=== PATIENT | female | born 1960 | race Caucasian/White ===

== ENCOUNTER 2017-05-09 02:21 | Emergency (ER) | payer BC ==
[2017-05-09] MEDS ORDERED: methylPREDNISolone SUCCINATE 125 MG/2 ML VIAL IVP STA (02:45)
[2017-05-09] MEDS ORDERED: FAMOTIDINE 20 MG/2 ML VIAL IVP STA (02:45)
[2017-05-09] MEDS ORDERED: ASPIRIN CHEW 81 MG TABLET PO STA (02:45)
[2017-05-09] MEDS ORDERED: ASPIRIN CHEW 81 MG TABLET ONE (02:53)
[2017-05-09] MEDS ORDERED: FAMOTIDINE 20 MG/2 ML VIAL ONE (02:53)
[2017-05-09] MEDS ORDERED: methylPREDNISolone SUCCINATE 125 MG/2 ML VIAL ONE (02:53)
[2017-05-09 03:04] LABS: BASOPHILS # (AUTO) 0.1 10^3/uL (0.0-0.1); BASOPHILS % (AUTO) 1.5 %; EOSINOPHILS # (AUTO) 0.1 10^3/uL (0.0-0.7); EOSINOPHILS % (AUTO) 1.2 %; HCT - HEMATOCRIT 35.2 % (37.0-47.0); HGB - HEMOGLOBIN 12.3 g/dL (12.0-16.0); LYMPHOCYTES # (AUTO) 1.8 10^3/uL (1.5-3.5); LYMPHOCYTES % (AUTO) 22.2 %; MEAN CORPUSCULAR HEMOGLOBIN 30.4 pg (27.0-31.0); MEAN PLATELET VOLUME 8.2 fL (7.9-10.8); MONOCYTES # (AUTO) 0.6 10^3/uL (0.0-1.0); MONOCYTES % (AUTO) 7.8 %; NEUTROPHILS # (AUTO) 5.6 10^3/uL (1.5-6.6); NEUTROPHILS % (AUTO) 67.3 %; RED BLOOD COUNT 4.05 10^6/uL (4.20-5.40); RED CELL DISTRIBUTION WIDTH 13.8 % (12.0-15.0); UNCORRECTED WHITE BLOOD COUNT 8.3 x10^3/uL; WHITE BLOOD COUNT 8.3 x10^3/uL (4.8-10.8)
[2017-05-09 03:10] LABS: INR 0.9 (0.8-1.2); PT - PROTHROMBIN TIME 10.6 secs (9.9-12.6)
[2017-05-09 03:11] LABS: ALBUMIN/GLOBULIN RATIO 1.1 (1.0-2.2); BILIRUBIN,TOTAL 0.5 mg/dL (0.2-1.0); CALCIUM 9.7 mg/dL (8.5-10.3); CREATININE 1.2 mg/dL (0.4-1.0); POTASSIUM 3.8 mmol/L (3.5-5.0); TOTAL PROTEIN 7.9 g/dL (6.7-8.2)
[2017-05-09 03:17] LABS: PARTIAL THROMBOPLASTIN TIME 35.6 secs (24.9-33.3)
--- NOTE | 2017-05-09 03:18 | XRAY Preliminary Report ---
Exam: XR Chest 1 View IMPRESSION: No acute process seen in the chest. [facility] SITE ID: [id number]
--- NOTE | 2017-05-09 03:21 | XRAY Report ---
EXAM: CHEST RADIOGRAPHY EXAM DATE: 05/09/2017 03:04 AM. CLINICAL HISTORY: Chest pain. COMPARISON: 04/13/2014 CT, 04/14/2014 x-ray. TECHNIQUE: 1 view. FINDINGS: Lungs/Pleura: No focal opacities evident. No pleural effusion. No pneumothorax. Mediastinum: Within exam limitations, cardiomediastinal contour is normal. Other: Dual-lead left chest pacer present. IMPRESSION: No acute process seen in the chest. [facility] Referring Provider Line: [phone] SITE ID: [id number]
[2017-05-09] MEDS ORDERED: SODIUM CHLORIDE 0.9% 1,000 ML IV ONE (03:39)
[2017-05-09] MEDS ORDERED: NITROGLYCERIN SL 0.4 MG TABLET SL STA (03:39)
[2017-05-09] MEDS ORDERED: NITROGLYCERIN SL 0.4 MG TABLET SL ONE (03:54)
--- NOTE | 2017-05-09 06:11 | ED Physician Documentation ---
PD HPI CHEST PAIN - Stated complaint Stated Complaint: CHEST PAIN - Chief complaint Chief Complaint: Cardiac - History obtained from History obtained from: Patient, Family - History of Present Illness Timing - onset: How many hours ago (1) Timing - onset during: Sleep Timing - details: Abrupt onset, Still present Quality: Pressure, Aching, Sharp Location: Substernal, Left chest Radiation: Jaw Improved by: Oxygen, Nitro Associated symptoms: Feeling faint / dizzy. No: Shortness of air, Diaphoresis, Nausea, Vomiting Similar symptoms before: Work up / diagnostics, Treatment, Follow up Recently seen: Not recently seen - Additional information Additional information: Patient is a 57 year old female with multiple co-morbidities who is presenting to the emergency department for chest pain. Patient states that earlier in the day she was stung by a wasp behind her left leg. Patient states that it wasn't bothersome at first but the swelling continued throughout the day. patient states that while she was sleeping she was woken up by chest pain. patient states that she has a history of prinzmental angina and this felt like her other episodes. Patient took her home nitro with good relief. Patient had a normal stress test this year, and recently had a pacemaker placed. Review of Systems Constitutional: denies: Fever, Chills Eyes: denies: Decreased vision Ears: denies: Ear pain, Drainage/discharge Nose: denies: Congestion Throat: denies: Oral lesions / sores, Sore throat Cardiac: reports: Chest pain / pressure. denies: Palpitations, Calf pain Respiratory: denies: Dyspnea, Cough, Wheezing GI: denies: Nausea, Vomiting : denies: Dysuria, Frequency, Hesitancy Skin: reports: Rash, Lesions Musculoskeletal: reports: Neck pain, Back pain Neurologic: denies: Generalized weakness, Focal weakness, Numbness Immunocompromised: denies: Immunocompromised PD PAST MEDICAL HISTORY - Past Medical History Past Medical History: Yes Cardiovascular: Hypertension, High cholesterol, Angina, Atrial fibrillation Respiratory: COPD, Pneumonia, Shortness of breath, Sleep apnea, CPAP use Neuro: CVA, Headache/migraine, Seizure disorder, Motion sickness Endocrine/Autoimmune: Type 2 diabetes, HyPOthyroidism, Other GI: GERD SPORTS PHYSIOTHERAPIST: None : Incontinence, Nocturia, Frequency, Kidney stones HEENT: Chronic sinusitis Psych: Anxiety, Claustrophobia Musculoskeletal: Osteoarthritis Derm: None - Past Surgical History Past Surgical History: Yes General: Cholecystectomy Ortho: Spine surgery /SPORTS PHYSIOTHERAPIST: section, Hysterectomy, Oophrectomy Neuro: Craniotomy - Present Medications Home Medications: Ambulatory Orders Medication Instructions Recorded Confirmed Albuterol [Ventolin Hfa] 2 puffs INH Q4H PRN 01/06/13 05/09/17 Amlodipine Besylate 10 mg PO DAILY 01/06/13 05/09/17 Antihemophilic Factor, Hum Rec 3,000 units IV DAILY PRN 01/06/13 05/09/17 [Recombinate] Aspirin [Aspir 81] 81 mg PO DAILY 01/06/13 05/09/17 Atorvastatin Calcium 80 mg PO HS 01/06/13 05/09/17 Doxazosin [Cardura] 2 mg PO QPM 01/06/13 05/09/17 Fludrocortisone [Florinef] 0.1 mg PO DAILY 01/06/13 05/09/17 Hydrocortisone [Cortef] 20 mg PO DAILY 01/06/13 05/09/17 Insulin Glargine,Hum.rec.anlog 30 units SQ DAILY 01/06/13 05/09/17 [Lantus] Insulin Lispro [Humalog] 6 - 18 units SQ ACHS 01/06/13 04/16/15 Multivitamin [Multi-Vitamin Daily] 1 tab PO DAILY 01/06/13 05/09/17 Neutra-Phos [K-Phos Neutral] 6 - 9 tab PO DAILY 01/06/13 05/09/17 Nitroglycerin [Nitrostat] 0.4 mg SL DAILY 01/06/13 05/09/17 Omeprazole 40 mg PO BID 01/06/13 05/09/17 Pramipexole Di-HCl [Mirapex] 2 mg PO HS 01/06/13 05/09/17 Ranolazine [Ranexa] 1 tab PO BID 01/06/13 05/09/17 Somatropin [Norditropin Flexpro] 0.8 mg SUBQ DAILY 01/06/13 05/09/17 Levothyroxine Sodium [Synthroid] 150 mcg PO DAILY 07/15/13 05/09/17 oxyCODONE [Roxicodone] 5 mg PO Q4-6H PRN #20 tablet 04/13/14 04/16/15 Calcitriol 1 cap PO MOWEFR@0900 08/19/1405/09/17 Ergocalciferol (Vitamin D2) 50,000 cap PO SUTH@0900 08/19/14 05/09/17 [Vitamin D2] Estradiol [Estrace] 0.5 gm TOP Q48H 08/19/14 05/09/17 Isosorbide Mononitrate [Imdur] 60 mg PO DAILY 08/19/14 05/09/17 Domperidone 30 mg pe PO QID 04/17/15 05/09/17 - Allergies Allergies/Adverse Reactions: Allergies Allergy/AdvReac Type Severity Reaction Status Date / Time promethazine HCl * Allergy Severe becomes Verified 05/09/17 02:28 [From Phenergan] unresponsive Sulfa (Sulfonamide Allergy Unknown unknown Verified 05/09/17 02:28 Antibiotics) morphine Allergy Unknown Verified 05/09/17 02:28 Penicillins Allergy unknown Verified 05/09/17 02:28 - Social History Does the pt smoke?: No Smoking Status: Never smoker Does the pt drink ETOH?: No Does the pt have substance abuse?: No - Immunizations Immunizations are current?: Yes - POLST Patient has POLST: Yes POLST Status: Full Code PD ED PE NORMAL - Vitals Vital signs reviewed: Yes - General General: Alert and oriented X 3, No acute distress, Well developed/nourished - HEENT HEENT: Atraumatic, PERRL, Moist mucous membranes - Neck Neck: Supple, no meningeal sign, No JVD - Cardiac Cardiac: RRR, No murmur - Respiratory Respiratory: No respiratory distress, Clear bilaterally - Abdomen Abdomen: Soft, Non tender, Non distended - Derm Derm: Warm and dry - Neuro Neuro: Alert and oriented X 3, No motor deficit, No sensory deficit, Normal speech - Psych Psych: Normal mood, Normal affect PD ED PE EXPANDED - General General: Alert, No acute distress, Anxious - Derm Derm: Rash, Urticaria (rash consistent with allergic reaction to posterior left leg) - Extremities Extremities: Left knee (posterior left knee pain and swelling) Results - Vitals Vitals: Vital Signs - 24 hr 05/09/17 05/09/17 05/09/17 02:25 03:54 04:00 Temperature 36.9 C Heart Rate 81 75 75 Respiratory 20 16 16 Rate Blood Pressure 160/82 H 140/72 H 133/73 H O2 Saturation 98 97 95 05/09/17 05/09/17 04:08 06:17 Temperature Heart Rate 74 80 Respiratory 16 16 Rate Blood Pressure 133/71 H 135/71 H O2 Saturation 95 95 Oxygen O2 Source [] Room air O2 Source Room air - EKG (time done) 0225 Rate: Rate (enter#) (81) Rhythm: NSR Rousseau: Normal Intervals: Normal DC QRS: Normal Ischemia: Normal ST segments Compare to prior EKG: Unchanged from prior EKG 0524 Rate: Rate (enter#) (81) Rhythm: NSR Compare to prior EKG: Unchanged from prior EKG - Labs Labs: Laboratory Tests 05/09/17 05/09/17 05/09/17 02:30 02:30 02:30 WBC 8.3 RBC 4.05 L Hgb 12.3 Hct 35.2 L MCV 87.0 MCH 30.4 MCHC 35.0 RDW 13.8 Plt Count 233 MPV 8.2 Neut # 5.6 Lymph # 1.8 [place] # 0.6 Eos # 0.1 Baso # 0.1 Absolute Nucleated RBC 0.00 Nucleated RBCs 0.0 PT 10.6 INR 0.9 APTT 35.6 H Sodium 139 Potassium 3.8 Chloride 104 Carbon Dioxide 27 Anion Gap 8.0 BUN 22 H Creatinine 1.2 H Estimated GFR (MDRD) 46 L Glucose 151 H Calcium 9.7 Total Bilirubin 0.5 AST 22 ALT 24 Alkaline Phosphatase 93 Troponin I B-Natriuretic Peptide Total Protein 7.9 Albumin 4.1 Globulin 3.8 Albumin/Globulin Ratio 1.1 Lipase 21 L 05/09/17 05/09/17 05/09/17 02:30 02:30 05:54 WBC RBC Hgb Hct MCV MCH MCHC RDW Plt Count MPV Neut # Lymph # [place] # Eos # Baso # Absolute Nucleated RBC Nucleated RBCs PT INR APTT Sodium Potassium Chloride Carbon Dioxide Anion Gap BUN Creatinine Estimated GFR (MDRD) Glucose Calcium Total Bilirubin AST ALT Alkaline Phosphatase Troponin I < 0.04 < 0.04 B-Natriuretic Peptide 25 Total Protein Albumin Globulin Albumin/Globulin Ratio Lipase - Rads (name of study) chest x-ray Radiology: Final report received (no acute disease process) PD MEDICAL DECISION MAKING - ED course Complexity details: reviewed old records, reviewed results, re-evaluated patient , considered differential, d/w patient, d/w family ED course: Patient was seen and examined at bedside. ekg was performed which showed nsr. labs were drawn and chest x-ray was performed. patient's original diagnostics including troponin were negative. patient was treated with aspirin and nitro. Patient was observed for another 3 hours. Repeat ekg and troponin remained negative. Patient was likely having an exacerbation of her angina. Patient required no further work up at this time. Patient stated that her pain had improved significantly and she felt comfortable with the discharge and follow up plans. Departure - Departure Disposition: Home, Self Care Clinical Impression: Prinzmetal angina Condition: Good Instructions: Coronary Artery Spasm Follow-Up: primary,care provider [Other] - Within 3 Days Comments: Your diagnostics today were within normal limits. this indicates that it is more likely to be your angina as opposed to a myocardial infarction. that being said this is only a snap shot in time any you still need to follow up with our doctor on wednesday for follow up care. Possibly another echo and stress test. You may return to the emergency department at any time for new, worsening or uncontrollable symptoms.
[2017-05-09 06:22] VITALS: BP 135/71
== END 2017-05-09 06:35 | disposition home or self-care (01) ==
LOC: ED 02:21
DX: I20.1 Angina pectoris with documented spasm (principal); I10 Essential (primary) hypertension; I48.91 Unspecified atrial fibrillation; E11.9 Type 2 diabetes mellitus without complications; Z79.4 Long term (current) use of insulin; E03.9 Hypothyroidism, unspecified; K21.9 Gastro-esophageal reflux disease without esophagitis; J44.9 Chronic obstructive pulmonary disease, unspecified; G47.30 Sleep apnea, unspecified; M19.90 Unspecified osteoarthritis, unspecified site; Z86.73 Personal history of transient ischemic attack (TIA), and cerebral infarction without residual deficits; Z79.82 Long term (current) use of aspirin
CPT/HCPCS: 36415; 71010; 80053; 83690; 83880; 84484; 85025; 85610; 85730; 93005; 96374; 96375; 99284; A9270